=== PATIENT | male | born 1965 | race Caucasian/White ===

== ENCOUNTER 2019-03-22 23:19 | Observation (INO) | payer BC ==
[2019-03-22] MEDS ORDERED: Ketorolac 60 MG/2 ML SDV IM ONE (23:38)
--- NOTE | 2019-03-22 23:39 | EDM.PDOC ---
ED HPI GENERAL MEDICAL PROBLEM - General Chief Complaint: Neck Problem Stated Complaint: PT HAS STIFF NECK Time Seen by Provider: 03/22/19 23:34 - History of Present Illness INITIAL COMMENTS - FREE TEXT/NARRATIVE: HISTORY AND PHYSICAL: History of present illness: Patient is a 53-year-old male presents with a concern of neck pain he denies trauma denies numbness weakness has had no fever chills or other complaints is no history of prior episodes. Review of systems: As per history of present illness and below otherwise all systems reviewed and negative. Past medical history: As per history of present illness and as reviewed below otherwise noncontributory. Surgical history: As per history of present illness and as reviewed below otherwise noncontributory. Social history: No reported history of drug or alcohol abuse. Family history: As per history of present illness and as reviewed below otherwise noncontributory. Physical exam: HEENT: Atraumatic, normocephalic, pupils reactive, negative for conjunctival pallor or scleral icterus, mucous membranes moist, throat clear, neck supple, mild tenderness paravertebral region at the level cervical spinal cervical midline tenderness no point tenderness no cervical radiculopathy trachea midline. Lungs: Clear to auscultation, breath sounds equal bilaterally, chest nontender. Heart: S1S2, regular, negative for clicks, rubs, or JVD. Abdomen: Soft, nondistended, nontender. Negative for masses or hepatosplenomegaly. Negative for costovertebral tenderness. Pelvis: Stable nontender. Genitourinary: Deferred. Rectal: Deferred. Extremities: Atraumatic, negative for cords or calf pain. Neurovascular unremarkable. Neuro: Awake, alert, oriented. Cranial nerves II through XII unremarkable. Cerebellum unremarkable. Motor and sensory unremarkable throughout. Exam nonfocal. Diagnostics: CT cervical spine x-ray soft tissue neck CBC CMP blood culture 2 Therapeutics: Toradol 60 mg IM Rocephin 1 g IV clindamycin 900 mg IV Decadron 10 mg IV Impression: #1 retropharyngeal edema etiology to be determined Definitive disposition and diagnosis as appropriate pending reevaluation and review of above. neck Pain Score (Numeric/FACES): 6 - Related Data Allergies Allergy/AdvReac Type Severity Reaction Status Date / Time No Known Allergies Allergy Verified 03/22/19 23:29 Home Meds: Home Meds . [No Known Home Meds] 03/22/19 [History] Social & Family History - Tobacco Use Smoking Status *Q: Current Every Day Smoker Years of Tobacco use: 5 Packs/Tins Daily: 1 - Recreational Drug Use Recreational Drug Use: No ED ROS GENERAL - Review of Systems Review Of Systems: ROS reveals no pertinent complaints other than HPI. ED EXAM, GENERAL - Physical Exam Exam: See Below (See dictation) Course - Vital Signs Last Recorded V/S: Last Vital Signs Temp 36.3 C 03/22/19 23:19 Pulse 80 03/22/19 23:19 Resp 18 03/22/19 23:19 BP 138/94 H 03/22/19 23:19 Pulse Ox 97 03/22/19 23:19 - Orders/Labs/Meds Orders: Active Orders 24 hr Category Date Time Status CBC WITH AUTO DIFF [HEME] Stat Lab 03/23/19 00:48 Ordered COMPREHENSIVE METABOLIC PN,CMP [CHEM] Stat Lab 03/23/19 00:48 Ordered CULTURE BLOOD [BC] Stat Lab 03/23/19 00:49 Ordered CULTURE BLOOD [BC] Stat Lab 03/23/19 00:49 Ordered INR,PT,PROTHROMBIN TIME [COAG] Stat Lab 03/23/19 00:48 Ordered STREP SCRN A RAPID W CULT CONF [RM] Stat Lab 03/23/19 00:48 Ordered Clindamycin Phosphate [Cleocin] 900 mg Med 03/23/19 00:47 Active Sodium Chloride 0.9% [Normal Saline] 50 ml IV ONETIME Sodium Chloride 0.9% [Normal Saline] 1,000 ml Med 03/23/19 00:46 Active IV STAT cefTRIAXone [Rocephin in Dextrose,Iso-Osm 1 GM/50 ML] 1 Med 03/23/19 00:46 Active gm Premix Bag 1 bag IV ONETIME dexAMETHasone [Dexamethasone] Med 03/23/19 00:47 Once 10 mg IVPUSH ONETIME ONE Blood Culture x2 Reflex Set [OM.PC] Stat Oth 03/23/19 00:48 Ordered Medication Orders Dexamethasone (Dexamethasone) 10 mg IVPUSH ONETIME ONE Stop: 03/23/19 00:48 Ceftriaxone Sodium/Dextrose 1 (gm/ Premix) 50 mls @ 100 mls/hr IV ONETIME ONE Stop: 03/23/19 01:15 Clindamycin Phosphate 900 mg/ (Sodium Chloride) 56 mls @ 100 mls/hr IV ONETIME ONE Stop: 03/23/19 01:18 Sodium Chloride (Normal Saline) 1,000 mls @ 999 mls/hr IV STAT ONE Stop: 03/23/19 01:46 Meds: Medications Generic Name Dose Route Start Last Admin Trade Name Freq PRN Reason Stop Dose Admin Dexamethasone 10 mg 03/23/19 00:47 Dexamethasone IVPUSH 03/23/19 00:48 ONETIME ONE Ceftriaxone Sodium/Dextrose 1 50 mls @ 100 mls/hr 03/23/19 00:46 gm/ Premix IV 03/23/19 01:15 ONETIME ONE Clindamycin Phosphate 900 mg/ 56 mls @ 100 mls/hr 03/23/19 00:47 Sodium Chloride IV 03/23/19 01:18 ONETIME ONE Sodium Chloride 1,000 mls @ 999 mls/hr 03/23/19 00:46 Normal Saline IV 03/23/19 01:46 STAT ONE Discontinued Medications Generic Name Dose Route Start Last Admin Trade Name Camiloq PRN Reason Stop Dose Admin Ketorolac Tromethamine 60 mg 03/22/19 23:38 03/22/19 23:54 Toradol IM 03/22/19 23:39 60 mg ONETIME ONE Administration Departure - Departure Time of Disposition: 00:50 Disposition: Refer to Observation Condition: Good Clinical Impression: Odynophagia - Discharge Information Referrals: PCP,None [Primary Care Provider] - Forms: ED Department Discharge - My Orders Last 24 Hours: My Active Orders 03/23/19 00:46 Sodium Chloride 0.9% [Normal Saline] 1,000 ml IV STAT cefTRIAXone [Rocephin in Dextrose,Iso-Osm 1 GM/50 ML] 1 gm Premix Bag 1 bag IV ONETIME 03/23/19 00:47 Clindamycin Phosphate [Cleocin] 900 mg Sodium Chloride 0.9% [Normal Saline] 50 ml IV ONETIME dexAMETHasone [Dexamethasone] 10 mg IVPUSH ONETIME ONE 03/23/19 00:48 CBC WITH AUTO DIFF [HEME] Stat COMPREHENSIVE METABOLIC PN,CMP [CHEM] Stat INR,PT,PROTHROMBIN TIME [COAG] Stat STREP SCRN A RAPID W CULT CONF [RM] Stat Blood Culture x2 Reflex Set [OM.PC] Stat 03/23/19 00:49 CULTURE BLOOD [BC] Stat CULTURE BLOOD [BC] Stat - Assessment/Plan Last 24 Hours: My Active Orders 03/23/19 00:46 Sodium Chloride 0.9% [Normal Saline] 1,000 ml IV STAT cefTRIAXone [Rocephin in Dextrose,Iso-Osm 1 GM/50 ML] 1 gm Premix Bag 1 bag IV ONETIME 03/23/19 00:47 Clindamycin Phosphate [Cleocin] 900 mg Sodium Chloride 0.9% [Normal Saline] 50 ml IV ONETIME dexAMETHasone [Dexamethasone] 10 mg IVPUSH ONETIME ONE 03/23/19 00:48 CBC WITH AUTO DIFF [HEME] Stat COMPREHENSIVE METABOLIC PN,CMP [CHEM] Stat INR,PT,PROTHROMBIN TIME [COAG] Stat STREP SCRN A RAPID W CULT CONF [RM] Stat Blood Culture x2 Reflex Set [OM.PC] Stat 03/23/19 00:49 CULTURE BLOOD [BC] Stat CULTURE BLOOD [BC] Stat
--- NOTE | 2019-03-23 00:13 | CR ---
INDICATION: Neck pain, difficulty swallowing TECHNIQUE: Neck soft tissue radiograph 3 views COMPARISON: None FINDINGS: Soft tissue: Mild thickening of the retropharyngeal soft tissues is present, measuring 2.2 cm at the C4 level. The epiglottis and airway are normal in appearance. No radiopaque foreign bodies are seen. Bone: No acute fractures or aggressive bone lesions are identified. Alignment is normal. Disc: Moderate degenerative disc disease is present at C5-6. The facet joints are unremarkable. IMPRESSION: 1. Mild thickening of the retropharyngeal soft tissues is present, measuring 2.2 cm at the C4 level. This is better characterized by recent CT. Dictated by Chetan Cano MD @ 03/23/2019 12:12:32 AM Dictated by: Chetan Cano MD @ 03/23/2019 00:12:36 (Electronically Signed)
--- NOTE | 2019-03-23 00:28 | CT ---
INDICATION: Neck pain, difficulty swallowing. TECHNIQUE: CT cervical spine without contrast. COMPARISON: None FINDINGS: Vertebrae: Alignment is normal. There are no fractures or suspicious bony lesions. Calcification anterior to the dens. Discs and facet joints: Mild facet hypertrophy C4-5 without significant stenosis. Minimal posterior osteophyte at C5-6 without significant stenosis. Extraspinal findings: Retropharyngeal edema which appears somewhat broad extending from roughly the C2 to the C5 level. This is approximately 6 centimeters in craniocaudal length. No significant parapharyngeal edema and the epiglottis and vocal cords do not appear involved. IMPRESSION: 1. Retropharyngeal edema extending roughly 6 centimeters craniocaudal distance. Differential diagnosis for the edema would be post-traumatic or infection. No obvious abscess although note that sensitivity would be reduced given the absence of intravenous contrast. 2. Minimal degenerative changes cervical spine without significant stenosis. Please note that all CT scans at this facility use dose modulation, iterative reconstruction, and/or weight-based dosing when appropriate to reduce radiation dose to as low as reasonably achievable. Dictated by Raji Whitaker MD @ Mar 23 2019 12:20AM Signed by Dr. Raij Whitaker @ Mar 23 2019 12:27AM
[2019-03-23] MEDS ORDERED: Sodium Chloride 0.9% 1,000 ML IV ONE (00:46)
[2019-03-23] MEDS ORDERED: cefTRIAXone 1 GM in Premix Bag 1 BAG IV ONE (00:46)
[2019-03-23] MEDS ORDERED: Dexamethasone 10 MG/ML SDV IVPUSH ONE (00:47)
[2019-03-23] MEDS ORDERED: Clindamycin Phosphate in D5W 900 MG in Premix Bag 1 BAG IV ONE ×2 (01:17)
[2019-03-23 01:44] LABS: BLOOD UREA NITROGEN,BUN 14 mg/dL (7.0-18.0); CARBON DIOXIDE,CO2 25.1 mmol/L (21.0-32.0); CHLORIDE,CL 107 mmol/L (98-107); GLUCOSE RANDOM 102 mg/dL (74-106); POTASSIUM,K 4.3 mmol/L (3.5-5.1); SODIUM,NA 140 mmol/L (136-148)
[2019-03-23] MEDS ORDERED: Ondansetron 4 MG/2 ML SDV IVPUSH PRN (02:27)
[2019-03-23] MEDS ORDERED: Acetaminophen 325 MG Tab PO PRN (02:30)
[2019-03-23] MEDS ORDERED: cefTRIAXone 1 GM in Premix Bag 1 BAG IV SCH (02:30)
[2019-03-23] MEDS ORDERED: oxyCODONE 5 MG Tab PO PRN (02:30)
[2019-03-23] MEDS ORDERED: Morphine 2 MG/ML Syringe IVPUSH PRN (02:31)
[2019-03-23] MEDS ORDERED: Enoxaparin 40 MG/0.4 ML Syringe SUBCUT SCH (07:00)
[2019-03-23] MEDS ORDERED: Iopamidol 755 MG/ML 500 ML Multipack Bottle IVPUSH STA (07:56)
--- NOTE | 2019-03-23 08:37 | CT ---
HISTORY: Retropharyngeal edema. TECHNIQUE: CT neck with IV contrast. COMPARISON: CT cervical spine same day. FINDINGS: Thickening of the prevertebral soft tissues with retropharyngeal edema over approximately 9 cm long segment from the level of C1 to the C5 level. 1.9 x 1.6 x 0.8 cm globular calcification anterior to the dens (sagittal series 207 image 44). No inflammatory change in the deep soft tissues otherwise. Multiple tonsilliths in the palatine tonsils bilaterally. No tonsillar phlegmon or abscess. Parotid and submandibular glands are normal. No enlarged lymph nodes. Internal jugular veins appear patent. Cervical carotid vasculature appears patent. Image paranasal sinuses and mastoid air cells are clear. Infraglottic airway is patent. Orbits are unremarkable. Cervical spine degenerative changes. 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 Retropharyngeal edema, likely reactive to calcific tendinitis. Please note that all CT scans at this facility use dose modulation, iterative reconstruction, and/or weight-based dosing when appropriate to reduce radiation dose to as low as reasonably achievable. Dictated by Bishop Gallo MD @ Mar 23 2019 8:14AM Signed by Dr. Bishop Gallo @ Mar 23 2019 8:36AM
[2019-03-23] MEDS ORDERED: Dexamethasone 10 MG/ML SDV IVPUSH SCH (09:00)
[2019-03-23] MEDS ORDERED: Clindamycin Phosphate in D5W 900 MG in Premix Bag 1 BAG IV SCH ×2 (09:00)
--- NOTE | 2019-03-23 09:46 | PCM.HP ---
<Dylan Santana M - Last Filed: 03/23/19 10:33> H&P History of Present Illness - General Date of Service: 03/23/19 Admit Problem/Dx: Admission Diagnosis/Problem Admission Diagnosis/Problem Dysphagia Source of Information: Patient History Limitations: Reports: No Limitations - History of Present Illness Initial Comments - Free Text/Narative: This patient is a 53-year-old male who presents with left neck discomfort after waking up from sleep 3 days ago. The discomfort is located on the back of the left side of his neck. It is described as being dull in nature and aggravated by turning, swallowing, opening his mouth and lying down. He has tried taking ibuprofen and using a heat pad, however, none of this has helped much. He has not had any trauma to his neck. Patient reports not being able to eat very much or sleep much because of the pain. He has not had similar neck pain the past. He has not had any fevers, chills, hemoptysis or shortness of breath. Patient does report drinking 15-20 beers per week and smokes 4 cigarettes per day for the past 7 years. On admission, patient was started on dexamethasone and clindamycin. X-ray of neck showed mild thickening of retropharyngeal soft tissues. neck Pain Score (Numeric/FACES): 3 - Related Data Allergies/Adverse Reactions: Allergies Allergy/AdvReac Type Severity Reaction Status Date / Time No Known Allergies Allergy Verified 03/22/19 23:29 Home Medications: Home Meds Diclofenac Sodium [Voltaren] 75 mg PO BIDMEALS PRN #30 tab.cr 03/23/19 [Rx] Past Medical History - Past Health History Medical/Surgical History: Denies Medical/Surgical History - Past Surgical History GI Surgical History: Reports: Colonoscopy Social & Family History - Family History Family Medical History: Noncontributory - Tobacco Use Smoking Status *Q: Current Every Day Smoker Years of Tobacco use: 1 Packs/Tins Daily: 1 - Caffeine Use Caffeine Use: Reports: Energy Drinks, Tea - Alcohol Use Days Per Week of Alcohol Use: 5 Number of Drinks Per Day: 3 Total Drinks Per Week: 15 Date of Last Drink: 03/22/19 Time of Last Drink: 19:00 - Recreational Drug Use Recreational Drug Use: No H&P Review of Systems - Review of Systems: Review Of Systems: See Below General: Denies: Fever, Chills HEENT: Reports: Headaches, Sore Throat. Denies: Ear Pain, Visual Changes Pulmonary: Denies: Shortness of Breath Cardiovascular: Denies: Chest Pain Gastrointestinal: Denies: Abdominal Pain, Constipation, Diarrhea, Nausea, Vomiting Genitourinary: Denies: Dysuria, Hematuria Musculoskeletal: Reports: Neck Pain Skin: Reports: No Symptoms Neurological: Denies: Numbness, Tingling Hematologic/Lymphatic: Denies: Easy Bleeding, Easy Bruising Exam - Exam Exam: See Below - Vital Signs Vital Signs: Last Vital Signs Temp 98.1 F 03/23/19 04:00 Pulse 67 03/23/19 04:00 Resp 17 03/23/19 04:00 BP 147/84 H 03/23/19 04:00 Pulse Ox 96 03/23/19 04:00 Weight: 92.805 kg - Exam General: Alert, Oriented, Cooperative HEENT: Conjunctiva Clear, EOMI, Hearing Intact, Mucosa Moist & [place], Posterior Pharynx Clear, Pupils Reactive, TMs Clear Neck: Supple, Trachea Midline, Lymphadenopathy, Other (Mild tenderness to palpation over left side side of neck. No obvious deformity. No erythema.) Lungs: Clear to Auscultation, Normal Respiratory Effort Cardiovascular: Regular Rate, Regular Rhythm GI/Abdominal Exam: Normal Bowel Sounds, Soft, Non-Tender, No Distention Extremities: Normal Inspection, Normal Range of Motion, No Pedal Edema, Normal Capillary Refill Skin: Warm, Dry, Intact Neurological: Cranial Nerves Intact, Strength Equal Bilateral, Normal Speech Neuro Extensive - Mental Status: Alert, Oriented x3, Normal Mood/Affect Neuro Extensive - Motor, Sensory, Reflexes: CN II-XII Intact Psychiatric: Alert, Normal Affect, Normal Mood - Patient Data Lab Results Last 24 hrs: Laboratory Results - last 24 hr 03/23/19 03/23/19 03/23/19 Range/Units 01:05 01:05 01:05 WBC 11.60 H (4.0-11.0) K/uL RBC 4.32 L (4.50-5.90) M/uL Hgb 14.3 (13.0-17.0) g/dL Hct 41.6 (38.0-50.0) % MCV 96.3 (80.0-98.0) fL MCH 33.1 H (27.0-32.0) pg MCHC 34.4 (31.0-37.0) g/dL RDW Std Deviation 42.8 (28.0-62.0) fl RDW Coeff of Víctor 13 (11.0-15.0) % Plt Count 232 (150-400) K/uL MPV 10.20 (7.40-12.00) fL Neut % (Auto) 72.7 (48.0-80.0) % Lymph % (Auto) 14.7 L (16.0-40.0) % Edgar % (Auto) 11.0 (0.0-15.0) % Eos % (Auto) 1.3 (0.0-7.0) % Baso % (Auto) 0.3 (0.0-1.5) % Neut # (Auto) 8.4 H (1.4-5.7) K/uL Lymph # (Auto) 1.7 (0.6-2.4) K/uL Edgar # (Auto) 1.3 H (0.0-0.8) K/uL Eos # (Auto) 0.2 (0.0-0.7) K/uL Baso # (Auto) 0.0 (0.0-0.1) K/uL INR 0.95 Sodium 140 (136-148) mmol/L Potassium 4.3 (3.5-5.1) mmol/L Chloride 107 (98-107) mmol/L Carbon Dioxide 25.1 (21.0-32.0) mmol/L BUN 14 (7.0-18.0) mg/dL Creatinine 0.9 (0.8-1.3) mg/dL Est Cr Clr Drug Dosing 101.79 mL/min Estimated GFR (MDRD) > 60.0 ml/min Glucose 102 (74-106) mg/dL Calcium 9.0 (8.5-10.1) mg/dL Total Bilirubin 0.5 (0.2-1.0) mg/dL AST 18 (15-37) IU/L ALT 34 (14-63) IU/L Alkaline Phosphatase 82 (46-116) U/L Total Protein 7.4 (6.4-8.2) g/dL Albumin 3.8 (3.4-5.0) g/dL Globulin 3.6 (2.6-4.0) g/dL Albumin/Globulin Ratio 1.1 (0.9-1.6) Result Diagrams: 03/23/19 01:05 03/23/19 01:05 Rocky Results Last 24 hrs: Microbiology 03/23/19 01:25 Group A Streptococcus Rapid Screen - Final Throat NEGATIVE STREP A SCREEN REFERENCE RANGE: NEGATIVE Problem List Initiated/Reviewed/Updated: Yes Orders Last 24hrs: Active Orders 24 hr Category Date Time Status Patient Status [ADT] Stat ADT 03/23/19 01:57 Active Oxygen Therapy [RC] PRN Care 03/23/19 06:53 Active Up ad Gayle [RC] ASDIRECTED Care 03/23/19 06:53 Active VTE/DVT Education [RC] PER UNIT ROUTINE Care 03/23/19 06:53 Active Vital Signs [RC] Q4H Care 03/23/19 06:53 Active Regular Diet [DIET] Diet 03/23/19 Breakfast Active CULTURE BLOOD [BC] Stat Lab 03/23/19 01:05 Received CULTURE BLOOD [BC] Stat Lab 03/23/19 01:20 Received CULTURE STREP A CONFIRMATION [RM] Stat Lab 03/23/19 01:25 Results STREP SCRN A RAPID W CULT CONF [RM] Stat Lab 03/23/19 01:25 Results Acetaminophen [Tylenol] Med 03/23/19 02:30 Active 650 mg PO Q6H PRN Clindamycin Phosphate in D5W [Cleocin in D5W] 900 mg Med 03/23/19 09:00 Active Premix Bag 1 bag IV Q8H Enoxaparin [Lovenox] Med 03/23/19 07:00 Active 40 mg SUBCUT Q24H Morphine Med 03/23/19 02:31 Active 2 mg IVPUSH Q4H PRN Ondansetron [Zofran] Med 03/23/19 02:27 Active 4 mg IVPUSH Q4H PRN cefTRIAXone [Rocephin in Dextrose,Iso-Osm 1 GM/50 ML] 1 Med 03/24/19 00:30 Active gm Premix Bag 1 bag IV Q24H dexAMETHasone [Dexamethasone] Med 03/23/19 09:00 Active 10 mg IVPUSH BID oxyCODONE Med 03/23/19 02:30 Active 5 mg PO Q4H PRN Blood Culture x2 Reflex Set [OM.PC] Stat Oth 03/23/19 00:48 Ordered Resuscitation Status Routine Resus Stat 03/23/19 06:53 Ordered Medication Orders Acetaminophen (Tylenol) 650 mg PO Q6H PRN PRN Reason: Pain (mild 1-3) Dexamethasone (Dexamethasone) 10 mg IVPUSH BID [facility] Last Admin: 03/23/19 09:32 Dose: 10 mg Enoxaparin Sodium (Lovenox) 40 mg SUBCUT Q24H [facility] Last Admin: 03/23/19 09:10 Dose: 40 mg Clindamycin Phosphate 900 mg/ (Premix) 50 mls @ 100 mls/hr IV Q8H [facility] Last Admin: 03/23/19 09:34 Dose: 100 mls/hr Ceftriaxone Sodium/Dextrose 1 (gm/ Premix) 50 mls @ 100 mls/hr IV Q24H [facility] Morphine Sulfate (Morphine) 2 mg IVPUSH Q4H PRN PRN Reason: Pain (severe 7-10) Ondansetron HCl (Zofran) 4 mg IVPUSH Q4H PRN PRN Reason: Nausea/Vomiting Oxycodone HCl (Oxycodone) 5 mg PO Q4H PRN PRN Reason: Pain (moderate 4-6) Assessment/Plan Comment:: Assessment: 1. Left neck pain secondary to calcific tendinitis. Plan: 1. For left neck pain, patient was started on dexamethasone and IV clindamycin on admission. CT without contrast showed retropharyngeal edema extending [address] with contrast was ordered and showed globular calcification compatible with calcific tendinitis of longus colli muscle with reactive retropharyngeal edema. Patient would like to be discharged today as he is returning to [place]. Patient given script Diclofenac and instructed to follow-up with PCP in [place]. This will serve as discharge summary for 03/23/19. Hospital Course: This is a 53-year-old male who presented to the hospital with a 3 day history of of dull left neck pain. X-ray of neck showed mild thickening of retropharyngeal soft tissues. Patient was started on IV dexamethasone and clindamycin and admitted for further evaluation. CT with contrast revealed globular calcification compatible with calcific tendinitis of longus colli muscle with reactive retropharyngeal edema. Patient instructed to continue using NSAIDs as well as heating pad as needed. Patient returning home to [place] today and given instructions to follow-up with PCP. Patient discharged in stable condition. <Dae Church - Last Filed: 03/23/19 10:55> H&P History of Present Illness - General Admit Problem/Dx: Admission Diagnosis/Problem Admission Diagnosis/Problem Dysphagia I have seen and examined the patient independently of Dr. Esther MD. I have reviewed and agree with the plan of care as outlined by Dr. Santana, and agree with the plan as outlined by this resident. I have discussed the case with the resident. Please see orders. Exam - Vital Signs Vital Signs: Last Vital Signs Temp 36.6 C 03/23/19 08:00 Pulse 65 03/23/19 08:00 Resp 18 03/23/19 08:00 BP 140/83 03/23/19 08:00 Pulse Ox 95 03/23/19 08:00 - Patient Data Lab Results Last 24 hrs: Laboratory Results - last 24 hr 03/23/19 03/23/19 03/23/19 Range/Units 01:05 01:05 01:05 WBC 11.60 H (4.0-11.0) K/uL RBC 4.32 L (4.50-5.90) M/uL Hgb 14.3 (13.0-17.0) g/dL Hct 41.6 (38.0-50.0) % MCV 96.3 (80.0-98.0) fL MCH 33.1 H (27.0-32.0) pg MCHC 34.4 (31.0-37.0) g/dL RDW Std Deviation 42.8 (28.0-62.0) fl RDW Coeff of Víctor 13 (11.0-15.0) % Plt Count 232 (150-400) K/uL MPV 10.20 (7.40-12.00) fL Neut % (Auto) 72.7 (48.0-80.0) % Lymph % (Auto) 14.7 L (16.0-40.0) % Edgar % (Auto) 11.0 (0.0-15.0) % Eos % (Auto) 1.3 (0.0-7.0) % Baso % (Auto) 0.3 (0.0-1.5) % Neut # (Auto) 8.4 H (1.4-5.7) K/uL Lymph # (Auto) 1.7 (0.6-2.4) K/uL Edgar # (Auto) 1.3 H (0.0-0.8) K/uL Eos # (Auto) 0.2 (0.0-0.7) K/uL Baso # (Auto) 0.0 (0.0-0.1) K/uL INR 0.95 Sodium 140 (136-148) mmol/L Potassium 4.3 (3.5-5.1) mmol/L Chloride 107 (98-107) mmol/L Carbon Dioxide 25.1 (21.0-32.0) mmol/L BUN 14 (7.0-18.0) mg/dL Creatinine 0.9 (0.8-1.3) mg/dL Est Cr Clr Drug Dosing 101.79 mL/min Estimated GFR (MDRD) > 60.0 ml/min Glucose 102 (74-106) mg/dL Calcium 9.0 (8.5-10.1) mg/dL Total Bilirubin 0.5 (0.2-1.0) mg/dL AST 18 (15-37) IU/L ALT 34 (14-63) IU/L Alkaline Phosphatase 82 (46-116) U/L Total Protein 7.4 (6.4-8.2) g/dL Albumin 3.8 (3.4-5.0) g/dL Globulin 3.6 (2.6-4.0) g/dL Albumin/Globulin Ratio 1.1 (0.9-1.6) Result Diagrams: 03/23/19 01:05 03/23/19 01:05 Rocky Results Last 24 hrs: Microbiology 03/23/19 01:25 Group A Streptococcus Rapid Screen - Final Throat NEGATIVE STREP A SCREEN REFERENCE RANGE: NEGATIVE Orders Last 24hrs: Active Orders 24 hr Category Date Time Status Patient Status [ADT] Stat ADT 03/23/19 01:57 Active Oxygen Therapy [RC] PRN Care 03/23/19 06:53 Active Ready for Discharge [RC] PER UNIT ROUTINE Care 03/23/19 10:33 Active Up ad Gayle [RC] ASDIRECTED Care 03/23/19 06:53 Active VTE/DVT Education [RC] PER UNIT ROUTINE Care 03/23/19 06:53 Active Vital Signs [RC] Q4H Care 03/23/19 06:53 Active Regular Diet [DIET] Diet 03/23/19 Breakfast Active CULTURE BLOOD [BC] Stat Lab 03/23/19 01:05 Received CULTURE BLOOD [BC] Stat Lab 03/23/19 01:20 Received CULTURE STREP A CONFIRMATION [RM] Stat Lab 03/23/19 01:25 Results STREP SCRN A RAPID W CULT CONF [RM] Stat Lab 03/23/19 01:25 Results Acetaminophen [Tylenol] Med 03/23/19 02:30 Active 650 mg PO Q6H PRN Clindamycin Phosphate in D5W [Cleocin in D5W] 900 mg Med 03/23/19 09:00 Active Premix Bag 1 bag IV Q8H Enoxaparin [Lovenox] Med 03/23/19 07:00 Active 40 mg SUBCUT Q24H Morphine Med 03/23/19 02:31 Active 2 mg IVPUSH Q4H PRN Ondansetron [Zofran] Med 03/23/19 02:27 Active 4 mg IVPUSH Q4H PRN cefTRIAXone [Rocephin in Dextrose,Iso-Osm 1 GM/50 ML] 1 Med 03/24/19 00:30 Active gm Premix Bag 1 bag IV Q24H dexAMETHasone [Dexamethasone] Med 03/23/19 09:00 Active 10 mg IVPUSH BID oxyCODONE Med 03/23/19 02:30 Active 5 mg PO Q4H PRN Blood Culture x2 Reflex Set [OM.PC] Stat Oth 03/23/19 00:48 Ordered Resuscitation Status Routine Resus Stat 03/23/19 06:53 Ordered Medication Orders Acetaminophen (Tylenol) 650 mg PO Q6H PRN PRN Reason: Pain (mild 1-3) Dexamethasone (Dexamethasone) 10 mg IVPUSH BID [facility] Last Admin: 03/23/19 09:32 Dose: 10 mg Enoxaparin Sodium (Lovenox) 40 mg SUBCUT Q24H [facility] Last Admin: 03/23/19 09:10 Dose: 40 mg Clindamycin Phosphate 900 mg/ (Premix) 50 mls @ 100 mls/hr IV Q8H [facility] Last Admin: 03/23/19 09:34 Dose: 100 mls/hr Ceftriaxone Sodium/Dextrose 1 (gm/ Premix) 50 mls @ 100 mls/hr IV Q24H [facility] Morphine Sulfate (Morphine) 2 mg IVPUSH Q4H PRN PRN Reason: Pain (severe 7-10) Ondansetron HCl (Zofran) 4 mg IVPUSH Q4H PRN PRN Reason: Nausea/Vomiting Oxycodone HCl (Oxycodone) 5 mg PO Q4H PRN PRN Reason: Pain (moderate 4-6)
[2019-03-24] MEDS ORDERED: cefTRIAXone 1 GM in Premix Bag 1 BAG IV SCH (00:30)
== END 2019-03-23 12:05 | disposition home or self-care (01) ==
LOC: MW.ED 23:19 → MW.MS 03-23 01:57
PROVIDERS: ADMIT Internal Medicine; ATTEND Internal Medicine
DX: M65.28 Calcific tendinitis, other site (principal); F17.210 Nicotine dependence, cigarettes, uncomplicated
CPT/HCPCS: 36415; 70360; 70491; 72125; 80053; 85025; 85610; 87040; 87081; 87880; 96365; 96366; 96367; 96372; 96375; 96376; 99285; G0378; J0696; J1100; J1650; J1885; J3490; J7040; Q9967; 99284